=== PATIENT | male | born 1975 | race Caucasian/White ===

== ENCOUNTER 2020-10-19 12:50 | Outpatient (CLI) | payer OTHER, SELFPAY ==
[2020-10-19 13:37] LABS: Alanine Aminotransferase 29 U/L (4-50); Albumin Level 4.5 g/dL (3.5-5.1); Alkaline Phosphatase 70 U/L (38-126); Anion Gap 7 mmol/L (8-16); Aspartate Amino Transferase 28 U/L (17-59); Bilirubin,Total 0.7 mg/dL (0.2-1.3); Blood Urea Nitrogen 14 mg/dL (9-20); Calcium 9.3 mg/dL (8.4-10.2); Carbon Dioxide 30 mmol/L (22-30); Chloride 103 mmol/L (98-107); Cholesterol 261 mg/dL (0-200); Estimated Glomerular Filt Rate > 60; Glucose 103 mg/dL (75-110); HDL Direct 39 mg/dL; Potassium 4.5 mmol/L (3.4-5.0); Sodium 140 mmol/L (137-145); Triglycerides 385 mg/dL (<150)
[2020-10-19 13:49] LABS: LDL Cholesterol Direct 158 mg/dL
== END 2020-10-19 12:51 | disposition home or self-care (01) ==
PROVIDERS: PCP Internal Medicine; Visit Provider Internal Medicine
DX: Z00.00 Encounter for general adult medical examination without abnormal findings (principal); F32.9 Major depressive disorder, single episode, unspecified
CPT/HCPCS: 36415; 80053; 80061; 84443

== ENCOUNTER 2020-12-14 14:30 | Outpatient (CLI) | payer OTHER, SELFPAY ==
[2020-12-14 15:04] LABS: Alanine Aminotransferase 46 U/L (4-50); Albumin Level 4.4 g/dL (3.5-5.1); Alkaline Phosphatase 72 U/L (38-126); Aspartate Amino Transferase 32 U/L (17-59); Bilirubin,Total 0.5 mg/dL (0.2-1.3); Cholesterol 182 mg/dL (0-200); HDL Direct 50 mg/dL; Triglycerides 326 mg/dL (<150)
[2020-12-14 15:16] LABS: LDL Cholesterol Direct 76 mg/dL
== END 2020-12-14 14:31 | disposition home or self-care (01) ==
PROVIDERS: PCP Internal Medicine; Visit Provider Internal Medicine
DX: Z51.81 Encounter for therapeutic drug level monitoring (principal); Z79.899 Other long term (current) drug therapy; E78.5 Hyperlipidemia, unspecified
CPT/HCPCS: 36415; 80061; 80076

== ENCOUNTER 2021-04-17 12:58 | Outpatient (CLI) | payer OTHER, SELFPAY ==
[2021-04-17 13:49] LABS: Cholesterol 208 mg/dL (0-200); HDL Direct 50 mg/dL; Triglycerides 427 mg/dL (<150)
[2021-04-17 14:00] LABS: LDL Cholesterol Direct 71 mg/dL
== END 2021-04-17 12:59 | disposition home or self-care (01) ==
PROVIDERS: PCP Internal Medicine; Visit Provider Nurse Practitioner
DX: E78.2 Mixed hyperlipidemia (principal)
CPT/HCPCS: 36415; 80061

== ENCOUNTER 2021-05-27 07:29 | Outpatient (CLI) | payer OTHER, SELFPAY ==
--- NOTE | 2021-06-19 22:58 | WPDHOMESLEEP ---
Sleep Study - Home Unattended Date of Study: 05/27/21 Ordering Provider: CAIN OlivasC Interpreting Provider: Anahi Candelaria MD Home Sleep Study Type: Apnea Link Air Height: 1.85 m Weight: 106.594 kg Body Mass Index: 30.9 Neck Circumference (inches): 17 [place]: 6 Reason for Sleep Study Loud snoring, night terrors, wakes up screaming. Sleep History Alverto Mitchell is a 46-year-old man with very loud snoring that constantly bothers others. He rarely awakens from sleep feeling short of breath. He occasionally has trouble sleeping with a cold. He does not wake up gasping for breath during the night. He has body jerks as he is falling asleep. He has anxiety. He frequently sweats excessively at night and frequently notices his heart pounding or beating irregularly at night. He constantly falls asleep during the day, never involuntarily and never while driving. He does not have loss of muscle tone with strong emotion. He frequently has daytime difficulties due to excessive sleepiness. He constantly feels paralyzed on waking or falling asleep and constantly has vivid dreamlike scenes upon awakening or falling asleep. He frequently is afraid to go to sleep. He frequently has nightmares and frequently remembers his dreams. He constantly has racing thoughts. He frequently feels sad or depressed. He constantly has anxiety. He frequently has muscular tension and frequently notices parts of his body jerking. He rarely kicks at night. He frequently has crawling aching feelings in his legs. He rarely has any kind of leg pain at night. He occasionally has morning jaw pain. He rarely grinds his teeth during sleep. He rarely is bothered by pain during the day. He occasionally is awakened by pain at night. He frequently wakes up feeling stiff in the morning, frequently wakes with sore achy muscles and pain in the neck and spine. He has memory problems, fatigue, headaches, concentration difficulties and sexual problems. He frequently has heartburn at night. He never awakens feeling refreshed. Normal bedtime varies, somewhere between 3:00 a.m. and 6:00 a.m., and it may take a long time to fall asleep. After falling asleep, he does awaken to go urinate. While awake he will watch television. He does not have a fixed wake-up time. He estimates getting 4-5 hours of sleep average. His weekend schedule is the same. he takes naps in the afternoon or evening. A short nap is not refreshing. He is usually drowsy for 3 hours after waking. He feels better in the evening compared to other times of day. Habits: Tobacco, half pack per day. Caffeine: 4 cups of coffee a day. Alcohol : 12 per week. Recreational drugs including marijuana and CBD flower on occasion. [facility] Past Medical History Medical History (Updated 06/19/21 @ 23:09 by Anahi Candelaria MD) Anxiety Major depression, chronic Mixed hyperlipidemia Social History Social History Smoking packs per day: 1 Smoking cigarettes per day: 20.0 Years smoked: 20 Smoking pack-years: 20.00 Smoking status: Current every day smoker Tobacco type: cigarettes Second hand tobacco smoke exposure: Yes Alcohol intake: current Drinks per week: 12 Alcohol use details: beer Substance use: former Substance use type: marijuana Gender identity (if verbalized by the patient): Male Spiritual care concerns: No Agree to blood products: Yes Medications Home Medications Medication Instructions Recorded Confirmed Type atorvastatin 20 mg tablet 20 mg PO DAILY #90 tablet 03/28/21 05/20/21 Rx bupropion HCl 300 mg 24 hr tablet, 300 mg PO QAM #90 tablet 04/18/21 05/20/21 Rx extended release aripiprazole 5 mg tablet 5 mg PO DAILY #30 tablet 05/20/21 05/20/21 Rx alprazolam 0.25 mg tablet 0.25 mg PO BID PRN #60 tablet 05/28/21 Rx fenofibrate 120 mg tablet 120 mg PO DAILY #90 tablet 06/06/21 Rx Sleep
[2021-06-19 23:11] VITALS: BMI 30.9
== END 2021-05-28 12:04 | disposition home or self-care (01) ==
LOC: ANHCSM 07:34
PROVIDERS: PCP Internal Medicine; Visit Provider Nurse Practitioner
DX: G47.33 Obstructive sleep apnea (adult) (pediatric) (principal); Z72.821 Inadequate sleep hygiene; Z68.31 Body mass index [BMI] 31.0-31.9, adult
CPT/HCPCS: 95806

== ENCOUNTER → 2021-07-01 04:10 | Outpatient (CLI) | payer OTHER, SELFPAY ==
[2021-07-01 19:01] LABS: SARS-CoV-2 RNA PCR Negative
== END ==
PROVIDERS: PCP Internal Medicine; Visit Provider Internal Medicine Critical Care Medicine
DX: R68.89 Other general symptoms and signs (principal); Z20.822 Contact with and (suspected) exposure to COVID-19
CPT/HCPCS: C9803; U0003; U0005

== ENCOUNTER → 2021-07-03 07:45 | Outpatient (CLI) | payer OTHER, SELFPAY ==
--- NOTE | 2021-07-19 18:34 | WPDSLEEPSTUD ---
Sleep Study Date of Study: 07/03/21 Ordering Provider: Jaun Resendez DO Interpreting Physician: Anahi Candelaria MD Sleep Study Type: CPAP Titration Height: 1.85 m Weight: 108.862 kg Body Mass Index: 31.6 Neck Circumference (inches): 17 [place]: 11 Reason for Sleep Study * 05/27/2021 home sleep test using ApneaLink; severe obstructive sleep apnea, AHI 39, majority of events were obstructive, 87%, with 13% central apneas, profound desaturation, average saturation 84%, minimum desaturation to 56%, 213 minutes spent below 88% and frequent snoring. Sleep History Alverto Mitchell is a 46-year-old man with very loud snoring that constantly bothers others. He rarely awakens from sleep feeling short of breath. He occasionally has trouble sleeping with a cold. He does not wake up gasping for breath during the night. He has body jerks as he is falling asleep. He has anxiety. He frequently sweats excessively at night and frequently notices his heart pounding or beating irregularly at night. He constantly falls asleep during the day, never involuntarily and never while driving. He does not have loss of muscle tone with strong emotion. He frequently has daytime difficulties due to excessive sleepiness. He constantly feels paralyzed on waking or falling asleep and constantly has vivid dreamlike scenes upon awakening or falling asleep. He frequently is afraid to go to sleep. He frequently has nightmares and frequently remembers his dreams. He constantly has racing thoughts. He frequently feels sad or depressed. He constantly has anxiety. He frequently has muscular tension and frequently notices parts of his body jerking. He rarely kicks at night. He frequently has crawling aching feelings in his legs. He rarely has any kind of leg pain at night. He occasionally has morning jaw pain. He rarely grinds his teeth during sleep. He rarely is bothered by pain during the day. He occasionally is awakened by pain at night. He frequently wakes up feeling stiff in the morning, frequently wakes with sore achy muscles and pain in the neck and spine. He has memory problems, fatigue, headaches, concentration difficulties and sexual problems. He frequently has heartburn at night. He never awakens feeling refreshed. Normal bedtime varies, somewhere between 3:00 a.m. and 6:00 a.m., and it may take a long time to fall asleep. After falling asleep, he does awaken to go urinate. While awake he will watch television. He does not have a fixed wake-up time. He estimates getting 4-5 hours of sleep average. His weekend schedule is the same. he takes naps in the afternoon or evening. A short nap is not refreshing. He is usually drowsy for 3 hours after waking. He feels better in the evening compared to other times of day. Habits: Tobacco, half pack per day. Caffeine: 4 cups of coffee a day. Alcohol : 12 per week. Recreational drugs including marijuana and CBD flower on occasion. [facility] Past Medical History Medical History Anxiety Major depression, chronic Mixed hyperlipidemia Social History Social History Smoking packs per day: 1 Smoking cigarettes per day: 20.0 Years smoked: 20 Smoking pack-years: 20.00 Smoking status: Current every day smoker Tobacco type: cigarettes Second hand tobacco smoke exposure: Yes Alcohol intake: current Drinks per week: 12 Alcohol use details: beer Substance use: former Substance use type: marijuana Gender identity (if verbalized by the patient): Male Spiritual care concerns: No Agree to blood products: Yes Medications Home Medications Medication Instructions Recorded Confirmed Type atorvastatin 20 mg tablet 20 mg PO DAILY #90 tablet 03/28/21 06/20/21 Rx bupropion HCl 300 mg 24 hr tablet, 300 mg PO QAM #90 tablet 04/18/21 06/20/21 Rx extended release fenofibrate 120
[2021-07-19 19:01] VITALS: BMI 31.6
== END ==
PROVIDERS: PCP Internal Medicine; Visit Provider Internal Medicine
DX: G47.33 Obstructive sleep apnea (adult) (pediatric) (principal)
CPT/HCPCS: 95811

== ENCOUNTER 2021-09-19 08:57 | Outpatient (CLI) | payer OTHER, SELFPAY ==
[2021-09-19 09:53] LABS: Alanine Aminotransferase 45 U/L (4-50); Albumin Level 4.5 g/dL (3.5-5.1); Alkaline Phosphatase 62 U/L (38-126); Anion Gap 8 mmol/L (8-16); Aspartate Amino Transferase 34 U/L (17-59); Bilirubin,Total 0.5 mg/dL (0.2-1.3); Blood Urea Nitrogen 13 mg/dL (9-20); Calcium 9.1 mg/dL (8.4-10.2); Carbon Dioxide 25 mmol/L (22-30); Chloride 103 mmol/L (98-107); Cholesterol 271 mg/dL (0-200); Estimated Glomerular Filt Rate > 60; Glucose 106 mg/dL (65-110); HDL Direct 41 mg/dL; Potassium 4.3 mmol/L (3.4-5.0); Sodium 136 mmol/L (137-145); Triglycerides 485 mg/dL (<150)
[2021-09-19 10:04] LABS: LDL Cholesterol Direct 122 mg/dL
== END 2021-09-19 08:58 | disposition home or self-care (01) ==
LOC: ANHLAB 08:58
PROVIDERS: PCP Internal Medicine; Visit Provider Nurse Practitioner
DX: E78.2 Mixed hyperlipidemia (principal); F32.9 Major depressive disorder, single episode, unspecified
CPT/HCPCS: 36415; 80053; 80061; 84443

== ENCOUNTER 2022-01-24 10:02 | Outpatient (CLI) | payer OTHER, SELFPAY ==
[2022-01-24 11:07] LABS: Alanine Aminotransferase 38 U/L (4-50); Alkaline Phosphatase 87 U/L (38-126); Anion Gap 6 mmol/L (8-16); Aspartate Amino Transferase 31 U/L (17-59); Bilirubin,Total 0.5 mg/dL (0.2-1.3); Blood Urea Nitrogen 14 mg/dL (9-20); Calcium 8.3 mg/dL (8.4-10.2); Carbon Dioxide 26 mmol/L (22-30); Chloride 106 mmol/L (98-107); Estimated Glomerular Filt Rate > 60; Glucose 109 mg/dL (65-110); Potassium 4.2 mmol/L (3.4-5.0); Sodium 138 mmol/L (137-145)
[2022-01-24 11:16] LABS: LDL Cholesterol Direct 56 mg/dL
[2022-01-24 11:17] LABS: Triglycerides 615 mg/dL (<150)
[2022-01-24 11:18] LABS: Cholesterol 171 mg/dL (0-200)
== END 2022-01-24 10:03 | disposition home or self-care (01) ==
LOC: ANHLAB 10:03
PROVIDERS: PCP Internal Medicine; Visit Provider Internal Medicine
DX: E78.2 Mixed hyperlipidemia (principal); Z79.899 Other long term (current) drug therapy
CPT/HCPCS: 36415; 80053; 80061

== ENCOUNTER 2022-05-30 10:25 | Outpatient (CLI) | payer OTHER, SELFPAY ==
[2022-05-30 11:18] LABS: Alanine Aminotransferase 34 U/L (6-50); Albumin Level 4.3 g/dL (3.5-5.1); Alkaline Phosphatase 84 U/L (38-126); Anion Gap 10 mmol/L (8-16); Aspartate Amino Transferase 32 U/L (17-59); Bilirubin,Total 0.4 mg/dL (0.2-1.3); Blood Urea Nitrogen 14 mg/dL (9-20); Calcium 8.7 mg/dL (8.4-10.2); Carbon Dioxide 26 mmol/L (22-30); Chloride 104 mmol/L (98-107); Cholesterol 154 mg/dL (0-200); Estimated Glomerular Filt Rate > 60; Glucose 108 mg/dL (65-110); HDL Direct 42 mg/dL; Potassium 4.1 mmol/L (3.4-5.0); Sodium 140 mmol/L (137-145); Triglycerides 347 mg/dL (<150)
[2022-05-30 11:29] LABS: LDL Cholesterol Direct 51 mg/dL
== END 2022-05-30 10:26 | disposition home or self-care (01) ==
LOC: ANHLAB 10:26
PROVIDERS: PCP Internal Medicine; Visit Provider Internal Medicine
DX: E78.2 Mixed hyperlipidemia (principal); Z79.899 Other long term (current) drug therapy
CPT/HCPCS: 36415; 80053; 80061

== ENCOUNTER 2022-12-08 12:29 | Outpatient (CLI) | payer OTHER, SELFPAY ==
[2022-12-08 13:18] LABS: Alanine Aminotransferase 41 U/L (6-50); Albumin Level 4.7 g/dL (3.5-5.1); Alkaline Phosphatase 76 U/L (38-126); Anion Gap 8 mmol/L (8-16); Aspartate Amino Transferase 32 U/L (17-59); Bilirubin,Total 0.6 mg/dL (0.2-1.3); Blood Urea Nitrogen 13 mg/dL (9-20); Calcium 9.1 mg/dL (8.4-10.2); Carbon Dioxide 26 mmol/L (22-30); Chloride 104 mmol/L (98-107); Cholesterol 175 mg/dL (0-200); Estimated Glomerular Filt Rate > 60; Glucose 95 mg/dL (65-110); HDL Direct 46 mg/dL; Potassium 4.2 mmol/L (3.4-5.0); Sodium 138 mmol/L (137-145); Triglycerides 478 mg/dL (<150)
[2022-12-08 13:28] LABS: LDL Cholesterol Direct 63 mg/dL
== END 2022-12-08 12:30 | disposition home or self-care (01) ==
LOC: ANHLAB 12:30
PROVIDERS: PCP Internal Medicine; Visit Provider Internal Medicine
DX: E78.2 Mixed hyperlipidemia (principal); Z79.899 Other long term (current) drug therapy
CPT/HCPCS: 36415; 80053; 80061

== ENCOUNTER 2023-02-06 12:08 | Outpatient (CLI) | payer OTHER, SELFPAY ==
--- NOTE | ~2023-02-06 | XR_ITS ---
EXAMINATION: [id number] INDICATION: Right rib pain TECHNIQUE: A frontal view of the chest and four views of the right ribs were obtained. COMPARISON: None. FINDINGS: The lungs are free of acute opacities. No pleural effusion or pneumothorax. The cardiomedia stinal silhouette is normal. The visualized bones and soft tissues are unremarkable. Calcified pulmon [place] nodules and calcified left hilar lymph nodes are consistent with old granulomatous disease. IMPRESSION: 1. No acute cardiopulmonary abnormality or evidence of displaced rib fracture. Reviewed, dictated and finalized at location B.
== END 2023-02-06 12:09 | disposition home or self-care (01) ==
LOC: ANHIMG 12:10
PROVIDERS: PCP Family Medicine; Visit Provider Family Medicine
DX: E78.2 Mixed hyperlipidemia (principal); F32.9 Major depressive disorder, single episode, unspecified; F41.8 Other specified anxiety disorders; G47.33 Obstructive sleep apnea (adult) (pediatric); R07.81 Pleurodynia
CPT/HCPCS: 71101

== ENCOUNTER 2023-08-18 09:15 | Outpatient (CLI) | payer OTHER, SELFPAY ==
[2023-08-18 10:19] LABS: Cholesterol 164 mg/dL (0-200); HDL Direct 54 mg/dL; Triglycerides 152 mg/dL (<150)
[2023-08-18 10:31] LABS: LDL Cholesterol Direct 78 mg/dL
== END 2023-08-18 09:16 | disposition home or self-care (01) ==
LOC: ANHLAB 09:17
PROVIDERS: PCP Family Medicine; Visit Provider Nurse Practitioner
DX: E78.5 Hyperlipidemia, unspecified (principal)
CPT/HCPCS: 36415; 80061

== ENCOUNTER 2024-10-08 08:30 | Outpatient (CLI) | payer OTHER, SELFPAY ==
[2024-10-08 08:42] LABS: Hematocrit 44.4 % (42.0-52.0); Hemoglobin 14.8 g/dL (14.0-18.0); Mean Corpuscular HGB Conc 33.3 g/dl (32-36); Mean Corpuscular Hemoglobin 31.8 pg (26-34); Mean Corpuscular Volume 95.3 fl (80-100); Mean Platelet Volume 8.5 fl (7.4-10.4); Platelet Count Result 313 k/mm3 (150-375); Red Blood Count 4.66 M/mm3 (4.6-6.20); Red Cell Distribution Width 14.7 % (11.5-14.5); White Blood Count 9.8 K/mm3 (4.5-10.0)
[2024-10-08 08:53] LABS: Alanine Aminotransferase 26 U/L (6-50); Albumin Level 4.3 g/dL (3.5-5.1); Alkaline Phosphatase 78 U/L (38-126); Anion Gap 1 mmol/L (4-12); Aspartate Amino Transferase 28 U/L (17-59); Bilirubin,Total 0.6 mg/dL (0.2-1.3); Blood Urea Nitrogen 11 mg/dL (9-20); Calcium 8.6 mg/dL (8.4-10.2); Carbon Dioxide 26 mmol/L (22-30); Chloride 109 mmol/L (98-107); Cholesterol 275 mg/dL (0-200); Estimated Glomerular Filt Rate > 60; Glucose 101 mg/dL (65-110); HDL Direct 61 mg/dL; Potassium 4.2 mmol/L (3.4-5.0); Sodium 136 mmol/L (137-145); Triglycerides 479 mg/dL (<150)
[2024-10-08 09:04] LABS: LDL Cholesterol Direct 129 mg/dL
[2024-10-08 09:23] LABS: Prostate Specific Antigen 3.4 ng/mL (< OR = 4.0)
== END 2024-10-08 08:31 | disposition home or self-care (01) ==
LOC: ANHLAB 08:32
PROVIDERS: PCP Family Medicine; Visit Provider Family Medicine
DX: Z12.5 Encounter for screening for malignant neoplasm of prostate (principal); E78.5 Hyperlipidemia, unspecified; G47.33 Obstructive sleep apnea (adult) (pediatric); F41.0 Panic disorder [episodic paroxysmal anxiety]; F41.8 Other specified anxiety disorders; F32.9 Major depressive disorder, single episode, unspecified; F41.9 Anxiety disorder, unspecified
CPT/HCPCS: 36415; 80053; 80061; 84153; 85027; G0103

== ENCOUNTER 2024-10-31 13:45 | Emergency (ER) | payer OTHER, SELFPAY ==
--- NOTE | ~2024-10-31 | XR_ITS ---
EXAMINATION: XR chest 2V DATE: 10/31/2024 14:02 INDICATION: Chest pain. TECHNIQUE: Frontal and lateral views of the chest were obtained. COMPARISON: Chest 2 views 02/06/2023 FINDINGS: There is mild atelectasis in left lower lung zone. No pleural effusion or pneumothorax. The heart size is normal. IMPRESSION: 1. Mild atelectasis in left lower lung zone. Reviewed, dictated and finalized at location B. L ALIGNMENT MECHANIC
--- NOTE | 2024-10-31 13:47 | ECG_ITS ---
Test Date: 2024-10-31 13:51:35 Measurements Intervals [place] Rate: 92 P: 10 [place]: 161 QRS: 6 QRSD: 92 T: 8 QT: 338 QTc: 420 Interpretive Statements SINUS RHYTHM NONSPECIFIC ST DEPRESSION No previous ECG available for comparison Electronically Signed On 10-31-2024 18:00:27 [employer] ROUND [employer]ER by Neo Tolentino M.D.
--- NOTE | 2024-10-31 13:52 | ED_ITS ---
HPI - Chest Pain General Chief Complaint: Chest Pain <Karin Rangel APRN - Last Filed: 10/31/24 13:54> Stated Complaint: CP <Karin Rangel APRN - Last Filed: 10/31/24 13:54> Time Seen by Provider: 10/31/24 13:52 <Karin Rangel APRN - Last Filed: 10/31/24 13:54> Focused HPI: Patient is a 49-year-old male who presents to the ER with chest pain has been going on for 4 days. He reports he has no cardiac history. Patient reports he has a history of anxiety and other mental health issues for which he takes a slew of medications. He denies any abdominal pain, back pain, recent fevers, urinary symptoms. GENERAL: Well-appearing, well-nourished, and in mild distress d/t anxiety. HEAD: Normocephalic, atraumatic. CHEST: Clear to auscultation. ?No respiratory distress. HEART: Regular rate and rhythm.? NEURO: ?Alert and oriented x3. Anxious. Patient screened in triage and initial orders placed.? ?Additional care and disposition to be based upon?diagnostic testing and treatment. <Karin Rangel APRN - Last Filed: 10/31/24 13:54> History of Present Illness HPI narrative: I agree with the above HPI <Yandel Barnett MD - Last Filed: 10/31/24 19:09> Related Data Allergies/Adverse Reactions: Allergies Allergy/AdvReac Type Severity Reaction Status Date / Time No Known Allergies Allergy Verified 10/31/24 15:25 <Karin Rangel APRN - Last Filed: 10/31/24 13:54> Review of Systems 2 Review of Systems: All systems reviewed & are unremarkable except as noted in HPI and below <Yandel Barnett MD - Last Filed: 10/31/24 19:09> PMFSH Past Medical History Medical History: Medical History Anxiety Major depression, chronic Mixed hyperlipidemia <Karin Rangel APRN - Last Filed: 10/31/24 13:54> Social History Social History: Social History (Updated 06/06/24 @ 11:42 by Awa Triana [facility]) Smoking packs per day: 0.25 Smoking cigarettes per day: 5.0 Years smoked: 20 Smoking pack-years: 5.00 Smoking status: Current every day smoker Tobacco type: cigarettes Second hand tobacco smoke exposure: Yes Alcohol intake: current Drinks per week: 6 Alcohol use details: beer, on occasion Substance use: current Substance use type: marijuana Do You Feel Safe in your Home?: Yes Lack of Transportation: No Lack of Food: Never True Current Housing: I Have Housing Concerned About Future Housing: No Difficulty Paying Gas/Electric Bills: No Difficulty Paying for Meds: No Currently Unemployed: No Education: High School Diploma/GED Living arrangements: with friend(s) Occupation/Education: unemployed Gender identity (if verbalized by the patient): Male Spiritual care concerns: No Agree to blood products: Yes <Karin Rangel APRN - Last Filed: 10/31/24 13:54> Exam 2 Narrative: APPEARANCE: Well appearing, no pain, no distress, well-nourished. HEAD: normocephalic, atraumatic. EYES: PERRLA/EOMI, conjunctivae clear. NOSE: Normal no drainage EARS:TMS clear with good light reflex. THROAT: Pharynx clear, no exudate. NECK: Supple. No adenopathy, no masses. RESPIRATORY: Airway patent, respirations nonlabored. Clear to auscultation bilaterally, no rales, rhonchi, wheezing. CARDIOVASCULAR: Regular rate and rhythm without murmurs rubs or gallops. ABDOMINAL: Soft, nontender, nondistended, normal bowel sounds MUSCULOSKELETAL: Moves all extremities. Strength/ROM intact, No edema, No calf tenderness. NEURO: Alert. Cranial nerves II through XII intact. Good gait. Good coordination SKIN: Warm, dry. Normal Color <Yandel Barnett MD - Last Filed: 10/31/24 19:09> Course Vital Signs Vital signs: Vital Signs Temperature 97.8 F 10/31/24 14:03 Pulse Rate 93 10/31/24 14:03 Respiratory Rate 18 10/31/24 14:03 Blood Pressure 119/84 10/31/24 14:03 Pulse Oximetry 100 10/31/24 14:03 Oxygen Delivery Room Air 10/31/24 14:03 Temperature 97.8 F 10/31/24 14:03 Pulse Rate 66 10/31/24 18:59 Respiratory Rate 20 10/31/24 18:59 Blood Pressure 109/85 10/31/24 18:59 Pulse Oximetry 100 10/31/24 18:59 Oxygen Delivery Room Air 10/31/24 15:23 <Karin Rangel APRN - Last Filed: 10/31/24 13:54> Vital Signs Temperature 97.8 F 10/31/24 14:03 Pulse Rate 93 10/31/24 14:03 Respiratory Rate 18 10/31/24 14:03 Blood Pressure 119/84 10/31/24 14:03 Pulse Oximetry 100 10/31/24 14:03 Oxygen Delivery Room Air 10/31/24 14:03 Temperature 97.8 F 10/31/24 14:03 Pulse Rate 66 10/31/24 18:59 Respiratory Rate 20 10/31/24 18:59 Blood Pressure 109/85 10/31/24 18:59 Pulse Oximetry 100 10/31/24 18:59 Oxygen Delivery Room Air 10/31/24 15:23 <Yandel Barnett MD - Last Filed: 10/31/24 19:09> MDM - Chest Pain MDM Narrative Medical decision making narrative: 49-year-old male presents to the emergency department for evaluation for 4 days of chest pain. Patient does have reproducible left-sided chest pain that is worsened with deep inspiration. Patient is afebrile but does have a leukocytosis of 12.9 a stable hemoglobin of 15. INR is 1.0. Patient had a D- dimer within normal limits, no acute abnormalities on the patient's CMP. Patient had negative serial troponins. Chest x-ray shows no acute cardiopulmonary abnormality. Patient was updated results of his workup. Patient was strongly encouraged close follow-up with his primary care physician for additional outpatient cardiac testing. All questions concerns were addressed. <Yandel Barnett MD - Last Filed: 10/31/24 19:09> Differential Diagnosis Differential diagnosis: Likely fracture of rib, pneumothorax, stable angina, unstable angina pectoris, atypical chest pain, costochondritis, chest pain, biliary colic and other <Yandel Barnett MD - Last Filed: 10/31/24 19:09> Lab Data Attestation: I reviewed the patient's lab results. <Yandel Barnett MD - Last Filed: 10/31/24 19:09> Result diagrams: 10/31/24 13:57 10/31/24 13:57 <Karin Rangel APRN - Last Filed: 10/31/24 13:54> Labs: Lab Results 10/31/24 10/31/24 Range/Units 13:57 17:00 WBC 12.9 H (4.5-10.0) K/mm3 RBC 4.76 (4.6-6.20) M/mm3 Hgb 15.0 (14.0-18.0) g/dL Hct 45.0 (42.0-52.0) % MCV 94.5 (80-100) fl MCH 31.5 (26-34) pg MCHC 33.3 (32-36) g/dl RDW 13.5 (11.5-14.5) % Plt Count 351 (150-375) k/mm3 MPV 8.7 (7.4-10.4) fl Immature Gran % (Auto) 0.4 (0-0.5) % Neut % (Auto) 59.6 (45.5-73.1) % Lymph % (Auto) 29.6 (18.3-44.2) % [place] % (Auto) 7.7 (2.6-8.5) % Eos % (Auto) 2.2 (0-4.4) % Baso % (Auto) 0.5 (0.2-1.2) % Lymph # (Auto) 3.83 H (0.9-3.2) K/mm3 [place] # (Auto) 1.0 H (0.1-0.6) K/mm3 Eos # (Auto) 0.3 (0-0.3) K/mm3 Baso # (Auto) 0.1 (0.0-0.1) K/mm3 Abs Immat Gran (auto) 0.05 H (0.00-0.031) K/mm3 Absolute Neuts (auto) 7.7 H (1.3-6.7) K/mm3 Absolute Nucleated RBC 0.000 (0.0-0.012) K/mm3 Nucleated RBC % 0.0 (0.0-0.2) % PT 13.4 (11.1-14.7) Seconds INR 1.0 APTT 28.7 (22.3-36.8) Seconds D-Dimer 0.34 (<0.48) ug/mL Sodium 138 (137-145) mmol/L Potassium 4.3 (3.4-5.0) mmol/L Chloride 102 (98-107) mmol/L Carbon Dioxide 27 (22-30) mmol/L Anion Gap 9 (4-12) mmol/L BUN 9 (9-20) mg/dL Creatinine 0.92 (0.7-1.3) mg/dL Estim Creat Clear Calc 107 ml/min Estimated GFR > 60 (59 - ) Glucose 98 (65-110) mg/dL Calcium 8.5 (8.4-10.2) mg/dL Total Bilirubin 0.7 (0.2-1.3) mg/dL AST 25 (17-59) U/L ALT 22 (6-50) U/L Alkaline Phosphatase 75 (38-126) U/L Troponin I < 0.012 < 0.012 (0.000-0.034) ng/mL Total Protein 7.0 (6.3-8.2) g/dL Albumin 4.2 (3.5-5.1) g/dL Lipase 144 (23-300) U/L <Karin Rangel, NEPHROLOGY SOCIAL WORKER - Last Filed: 10/31/24 13:54> Lab Results 10/31/24 10/31/24 Range/Units 13:57 17:00 WBC 12.9 H (4.5-10.0) K/mm3 RBC 4.76 (4.6-6.20) M/mm3 Hgb 15.0 (14.0-18.0) g/dL Hct 45.0 (42.0-52.0) % MCV 94.5 (80-100) fl MCH 31.5 (26-34) pg MCHC 33.3 (32-36) g/dl RDW 13.5 (11.5-14.5) % Plt Count 351 (150-375) k/mm3 MPV 8.7 (7.4-10.4) fl Immature Gran % (Auto) 0.4 (0-0.5) % Neut % (Auto) 59.6 (45.5-73.1) % Lymph % (Auto) 29.6 (18.3-44.2) % [place] % (Auto) 7.7 (2.6-8.5) % Eos % (Auto) 2.2 (0-4.4) % Baso % (Auto) 0.5 (0.2-1.2) % Lymph # (Auto) 3.83 H (0.9-3.2) K/mm3 [place] # (Auto) 1.0 H (0.1-0.6) K/mm3 Eos # (Auto) 0.3 (0-0.3) K/mm3 Baso # (Auto) 0.1 (0.0-0.1) K/mm3 Abs Immat Gran (auto) 0.05 H (0.00-0.031) K/mm3 Absolute Neuts (auto) 7.7 H (1.3-6.7) K/mm3 Absolute Nucleated RBC 0.000 (0.0-0.012) K/mm3 Nucleated RBC % 0.0 (0.0-0.2) % PT 13.4 (11.1-14.7) Seconds INR 1.0 APTT 28.7 (22.3-36.8) Seconds D-Dimer 0.34 (<0.48) ug/mL Sodium 138 (137-145) mmol/L Potassium 4.3 (3.4-5.0) mmol/L Chloride 102 (98-107) mmol/L Carbon Dioxide 27 (22-30) mmol/L Anion Gap 9 (4-12) mmol/L BUN 9 (9-20) mg/dL Creatinine 0.92 (0.7-1.3) mg/dL Estim Creat Clear Calc 107 ml/min Estimated GFR > 60 (59 - ) Glucose 98 (65-110) mg/dL Calcium 8.5 (8.4-10.2) mg/dL Total Bilirubin 0.7 (0.2-1.3) mg/dL AST 25 (17-59) U/L ALT 22 (6-50) U/L Alkaline Phosphatase 75 (38-126) U/L Troponin I < 0.012 < 0.012 (0.000-0.034) ng/mL Total Protein 7.0 (6.3-8.2) g/dL Albumin 4.2 (3.5-5.1) g/dL Lipase 144 (23-300) U/L <Yandel Barnett MD - Last Filed: 10/31/24 19:09> Imaging Data Radiologist's impression: Impressions Chest X-Ray 10/31/24 14:13 IMPRESSION: 1. Mild atelectasis in left lower lung zone. <Yandel Barnett MD - Last Filed: 10/31/24 19:09> Discharge Plan Discharge Clinical Impression: Left-sided chest pain, Chest pain, pleuritic <Karin Rangel APRN - Last Filed: 10/31/24 13:54> Patient Disposition: Home, Self-Care <Karin Rangel APRN - Last Filed: 10/31/24 13:54> Condition: Stable <Karin Rangel APRN - Last Filed: 10/31/24 13:54> Instructions: Antibiotic Form, Chest Pain (ED), Pleurisy (ED) <Karin Rangel APRN - Last Filed: 10/31/24 13:54> Additional Instructions: Ibuprofen for pain control. Have close follow-up with your primary care physician for additional outpatient cardiac testing. If you have any worsening symptoms then please call or return to the emergency department. <Karin Rangel APRN - Last Filed: 10/31/24 13:54> Patient Language: Indonesian <Karin Rangel APRN - Last Filed: 10/31/24 13:54> Prescriptions: No Action ondansetron 8 mg tablet,disintegrating 8 mg PO Q8H PRN (Reason: nausea and vomiting) Qty: 20 0RF bupropion HCl 300 mg tablet extended release 24 hr 300 mg PO QAM Qty: 90 1RF aripiprazole 10 mg tablet See Rx Instructions .ROUTE .COMPLEX Qty: 30 0RF Dose Instruction: TAKE 1 TABLET BY MOUTH DAILY Rx Instructions: TAKE 1 TABLET BY MOUTH DAILY alprazolam 1 mg tablet 1 mg PO BID PRN (Reason: anxiety) Qty: 60 0RF escitalopram oxalate 10 mg tablet See Rx Instructions .ROUTE .COMPLEX Qty: 30 0RF Dose Instruction: TAKE 1 TABLET BY MOUTH DAILY Rx Instructions: TAKE 1 TABLET BY MOUTH DAILY <Karin Rangel APRN - Last Filed: 10/31/24 13:54> Follow-up/Referrals: Barrington Silvestre MD [Primary Care Provider] - <Karin Rangel APRN - Last Filed: 10/31/24 13:54> Stand Alone Forms: Work/School Release IP <Karin Rangel APRN - Last Filed: 10/31/24 13:54> Quality HEART score for chest pain patients History: slightly suspicious <Yandel Barnett MD - Last Filed: 10/31/24 19:09> ECG: normal <Yandel Barnett MD - Last Filed: 10/31/24 19:09> Age: > 45 and < 65 years <Yandel Barnett MD - Last Filed: 10/31/24 19:09> Risk factors: 1 or 2 risk factors <Yandel Barnett MD - Last Filed: 10/31/24 19:09> Troponin: < or = to 1x normal limit <Yandel Barnett MD - Last Filed: 10/31/24 19:09> Heart score: 2 <Yandel Barnett MD - Last Filed: 10/31/24 19:09>
[2024-10-31 14:03] VITALS: BP 119/84; PULSE 93; RESP 18; TEMP 36.6; O2SAT 100
[2024-10-31 14:10] LABS: Basophils Absolute Auto 0.1 K/mm3 (0.0-0.1); Basophils Percent Auto 0.5 % (0.2-1.2); Eosinophils Absolute Auto 0.3 K/mm3 (0-0.3); Eosinophils Percent Auto 2.2 % (0-4.4); Immature Granulocyte Absolute 0.05 K/mm3 (0.00-0.031); Immature Granulocyte Percent A 0.4 % (0-0.5); Lymphocytes Absolute Auto 3.83 K/mm3 (0.9-3.2); Lymphocytes Percent Auto 29.6 % (18.3-44.2); Mean Corpuscular HGB Conc 33.3 g/dl (32-36); Mean Corpuscular Hemoglobin 31.5 pg (26-34); Mean Corpuscular Volume 94.5 fl (80-100); Mean Platelet Volume 8.7 fl (7.4-10.4); Monocytes Percent Auto 7.7 % (2.6-8.5); Neutrophils Absolute Auto 7.7 K/mm3 (1.3-6.7); Neutrophils Percent Auto 59.6 % (45.5-73.1); Platelet Count Result 351 k/mm3 (150-375); Red Blood Count 4.76 M/mm3 (4.6-6.20); Red Cell Distribution Width 13.5 % (11.5-14.5); White Blood Count 12.9 K/mm3 (4.5-10.0)
[2024-10-31 14:20] LABS: Alanine Aminotransferase 22 U/L (6-50); Albumin Level 4.2 g/dL (3.5-5.1); Alkaline Phosphatase 75 U/L (38-126); Anion Gap 9 mmol/L (4-12); Aspartate Amino Transferase 25 U/L (17-59); Bilirubin,Total 0.7 mg/dL (0.2-1.3); Blood Urea Nitrogen 9 mg/dL (9-20); Calcium 8.5 mg/dL (8.4-10.2); Carbon Dioxide 27 mmol/L (22-30); Chloride 102 mmol/L (98-107); Estimated CRCL calculation 107 ml/min; Estimated Glomerular Filt Rate > 60; Glucose 98 mg/dL (65-110); Lipase 144 U/L (23-300); Potassium 4.3 mmol/L (3.4-5.0); Sodium 138 mmol/L (137-145)
[2024-10-31 14:28] LABS: Partial Thromboplastin Time 28.7 Seconds (22.3-36.8); Prothrombin Time 13.4 Seconds (11.1-14.7)
[2024-10-31 14:32] LABS: Troponin I < 0.012 ng/mL (0.000-0.034)
[2024-10-31 15:23] VITALS: PULSE 76; O2SAT 99
--- NOTE | 2024-10-31 16:56 | ECG_ITS ---
Test Date: 2024-10-31 17:00:50 Measurements Intervals [place] Rate: 72 P: 23 [place]: 163 QRS: 44 QRSD: 94 T: 46 QT: 356 QTc: 392 Interpretive Statements SINUS RHYTHM Compared to ECG 10/31/2024 13:51:35 ST (T wave) deviation no longer present Electronically Signed On 10-31-2024 17:53:49 NICKEL OPERATOR by Neo Tolentino M.D.
--- NOTE | 2024-10-31 17:01 | PC.NURSE ---
small bruise to left chest noted, pt denies nay injuries.
[2024-10-31 17:02] VITALS: BP 108/75; PULSE 81; RESP 20; O2SAT 98
[2024-10-31 17:30] LABS: Troponin I < 0.012 ng/mL (0.000-0.034)
[2024-10-31 17:34] LABS: D Dimer 0.34 ug/mL (<0.48)
[2024-10-31 18:59] VITALS: BP 109/85; PULSE 66; RESP 20; O2SAT 100
== END 2024-10-31 19:03 | disposition home or self-care (01) ==
PROVIDERS: Emergency Provider Emergency Medicine; PCP Family Medicine
DX: R07.81 Pleurodynia (principal); E78.2 Mixed hyperlipidemia; F41.9 Anxiety disorder, unspecified; F32.9 Major depressive disorder, single episode, unspecified; F17.210 Nicotine dependence, cigarettes, uncomplicated; Z79.899 Other long term (current) drug therapy; R94.31 Abnormal electrocardiogram [ECG] [EKG]
CPT/HCPCS: 36415; 71046; 80053; 83690; 84484; 85025; 85380; 85610; 85730; 93005; 99284

== ENCOUNTER 2024-12-16 11:09 | Outpatient (CLI) | payer OTHER, SELFPAY ==
--- NOTE | ~2024-12-16 | CT_ITS ---
EXAMINATION:CT lung screening DATE: 12/16/2024 11:25 INDICATION: Personal history of nicotine dependence. Current smoker with 30 pack year history. TECHNIQUE: Computed tomography (CT) of the chest was performed without intravenous contrast. Automate d exposure control and iterative reconstruction technique were employed. The dose-length product (DLP ) was 168.85 mGy-cm. COMPARISON: None. FINDINGS: There is mild emphysema. There is mild scarring at the lung apices. There is mild atelectas is bilaterally. Calcified left lung nodules and calcified left hilar lymph nodes are consistent with old granulomatous disease. There is a 5 mm nodule in left lower lobe. There is a 5 mm nodule in left upper lobe. No pleural effusion. The heart size is normal. No pericardial effusion. There is an old h ealed left rib fracture. There is mild thoracic spondylosis. There is mild chronic anterior wedging o f multiple vertebral bodies. IMPRESSION: 1. Lung-RADS category 2: Benign appearance or behavior. Continue annual screening with noncontrast lo w-dose chest CT in 12 months. Reviewed, dictated and finalized at location A. STANT AUDITOR IMPRESSION: 1. Lung-RADS category 2: Benign appearance or behavior. Continue annual screeni ng with noncontrast low-dose chest CT in 12 months.
== END 2024-12-16 11:10 | disposition home or self-care (01) ==
PROVIDERS: Visit Provider Family Medicine
DX: Z12.2 Encounter for screening for malignant neoplasm of respiratory organs (principal); Z87.891 Personal history of nicotine dependence
CPT/HCPCS: 71271